=== PATIENT | female | born 1995 | race African-American/Black ===

== ENCOUNTER 2019-05-03 09:36 | Emergency (ER) | payer MEDICAID, OTHER ==
[~2019-05-03] VITALS: Ht 167.6 cm; Wt 81.0 kg
[2019-05-03] MEDS ORDERED: KETOROLAC 30MG/ML VIAL IV STA (10:01)
[2019-05-03 10:37] LABS: BASOPHILS % 0.6 % (0.0-2.0); EOSINOPHILS % 2.1 % (0.0-5.0); HEMATOCRIT. 32.9 % (36.0-48.0); HEMOGLOBIN. 10.6 g/dL (12.0-16.0); LYMPHOCYTES % 18.1 % (20.0-50.0); MEAN CORPUSCULAR HEMOGLOBIN 26.1 pg (28.0-32.0); MEAN CORPUSCULAR VOLUME 80.8 fL (81.0-99.0); MEAN PLATELET VOLUME 8.9 fl (7.4-10.4); MONOCYTES % 9.4 % (2.0-8.0); NEUTROPHILS % 69.8 % (40.0-76.0); PLATELET 331 x1000/uL (130-400); RED BLOOD CELL COUNT 4.07 mill/uL (4.2-5.4); RED CELL DISTRIBUTION WIDTH 18.8 % (11.6-14.6)
[2019-05-03 10:42] LABS: CHLORIDE 110 mEq/L (98-107); PROTHROMBIN TIME 10.2 sec (9.6-11.0)
[2019-05-03 10:46] LABS: HCG SCREEN NEGATIVE
[2019-05-03 11:30] LABS: CLARITY URINE CLEAR (CLEAR); COLOR URINE YELLOW (YELLOW); KETONES URINE NEGATIVE (NEGATIVE); LEUKOCYTE ESTERASE URINE NEGATIVE (NEGATIVE); NITRITE URINE NEGATIVE (NEGATIVE); OCCULT BLOOD URINE NEGATIVE (NEGATIVE); PH URINE 6.5 (4.5-8.0); PROTEIN URINE NEGATIVE (NEGATIVE); UROBILINOGEN URINE 0.2 E.U./dL (0.2-1.0)
[2019-05-03] MEDS ORDERED: OXYCODONE HCL/ACETAMINOPHEN 5/325MG TABLET PO ONE (11:45)
[2019-05-03 12:07] VITALS: BP 107/64
== END 2019-05-03 12:07 | disposition home or self-care (01) ==
LOC: ER 09:36
DX: R10.9 Unspecified abdominal pain (principal); R11.2 Nausea with vomiting, unspecified
CPT/HCPCS: 36415; 80053; 81003; 81025; 83690; 84703; 85025; 85610; 96374; 99283; J1885

== ENCOUNTER 2020-12-29 06:30 | Emergency (ER) | payer SELFPAY ==
[~2020-12-29] VITALS: Ht 167.6 cm; Wt 84.0 kg
[~2020-12-29 06:30] MED LIST: AMOX-424 MT; ONDA4TAB5 MT
[2020-12-29 06:31] VITALS: BP 100/53
== END 2020-12-29 08:54 | disposition left against medical advice (07) ==
LOC: ER 07:32
DX: R42 Dizziness and giddiness (principal); Z53.21 Procedure and treatment not carried out due to patient leaving prior to being seen by health care provider

== ENCOUNTER 2024-09-08 16:18 | Emergency (ER) | payer MEDICAID ==
[~2024-09-08] VITALS: Ht 167.6 cm; Wt 91.0 kg
[2024-09-08 16:31] VITALS: BP 109/65; TEMP 36.9; O2SAT 99
[2024-09-08 16:32] VITALS: PULSE 65; RESP 20; O2SAT 99
[2024-09-08] MEDS ORDERED: IBUP-2028 MT (19:26)
[2024-09-08] MEDS ORDERED: CEPH500C2 MT (19:26)
[2024-09-08] MEDS ORDERED: BENZ100C86 MT (19:26)
[2024-09-08] MEDS ORDERED: SULF1TAB48 MT (19:26)
== END 2024-09-08 19:38 | disposition home or self-care (01) ==
LOC: ER 16:18
DX: L02.214 Cutaneous abscess of groin (principal); R05.9 Cough, unspecified; Z79.899 Other long term (current) drug therapy
CPT/HCPCS: 10060; 99283

== ENCOUNTER 2024-09-10 10:44 | Emergency (ER) | payer MEDICAID ==
[~2024-09-10] VITALS: Ht 167.6 cm; Wt 86.1 kg
[~2024-09-10 10:44] MED LIST changes: +BENZ100C86 MT; +CEPH500C2 MT; +IBUP-2028 MT; +SULF1TAB48 MT
[2024-09-10 10:46] VITALS: O2SAT 98
[2024-09-10 10:52] VITALS: BP 118/76; PULSE 72; RESP 16; TEMP 37.1; O2SAT 100
== END 2024-09-10 15:45 | disposition left against medical advice (07) ==
LOC: ER 10:44
DX: Z00.8 Encounter for other general examination (principal); Z53.21 Procedure and treatment not carried out due to patient leaving prior to being seen by health care provider